=== PATIENT | female | born 1940 | race Caucasian/White ===

== ENCOUNTER 2018-06-01 08:05 | Emergency (ER) | payer OTHER ==
[~2018-06-01] VITALS: Ht 154.9 cm; Wt 63.7 kg
[2018-06-01 10:51] VITALS: BP 188/72
== END 2018-06-01 10:51 | disposition home or self-care (01) ==
LOC: ED 08:05
DX: S01.511A Laceration without foreign body of lip, initial encounter (principal); I10 Essential (primary) hypertension; W01.0XXA Fall on same level from slipping, tripping and stumbling without subsequent striking against object, initial encounter; Y93.89 Activity, other specified; Y92.89 Other specified places as the place of occurrence of the external cause; Y99.8 Other external cause status
CPT/HCPCS: 90715

== ENCOUNTER 2018-06-07 08:15 | Emergency (ER) | payer OTHER ==
[~2018-06-07] VITALS: Ht 152.4 cm; Wt 64.4 kg
[2018-06-07 08:23] VITALS: Ht 152.4 cm; Wt 64.4 kg
[2018-06-07 08:46] VITALS: BP 187/94
== END 2018-06-07 08:46 | disposition home or self-care (01) ==
LOC: ED 08:15
DX: S01.511D Laceration without foreign body of lip, subsequent encounter (principal); I10 Essential (primary) hypertension; X58.XXXD Exposure to other specified factors, subsequent encounter